=== PATIENT | male | born 1935 | race Caucasian/White ===

== ENCOUNTER 2018-05-20 17:23 | Emergency (ER) | payer MEDICARE ==
--- NOTE | 2018-05-20 18:34 | EDM.PDOC ---
ED HPI GENERAL MEDICAL PROBLEM - General Chief Complaint: General Stated Complaint: MEDICAL Time Seen by Provider: 05/20/18 18:31 Source of Information: Reports: Police, RN Notes Reviewed History Limitations: Reports: Physical Impairment - History of Present Illness INITIAL COMMENTS - FREE TEXT/NARRATIVE: 82-year-old gentleman presents to the emergency department via law enforcement he is from [facility] during winter months resides in [place] during the summer months. Initially presented to the [facility] in [place] stating was confused however before any evaluation was done he walked off and got into his car drove away. Law enforcement was called they did apprehend him in [place] EMS services were called he was then brought to the emergency department for further evaluation he is pleasant and cooperative but he is clearly having memory issues consistent with a dementia type process therefore it's difficult to obtain any review of systems or any pertinent history of present illness. We are able to contact his and [facility] she was able to confirm that he was fine when he left planning a trip [place] spoke with him today on the phone also seemed to be fine. He does have a history of urinary tract infections - Related Data Allergies Allergy/AdvReac Type Severity Reaction Status Date / Time No Known Allergies Allergy Verified 05/20/18 17:41 Home Meds: Home Meds Levothyroxine 75 mcg PO DAILY 05/20/18 [History] Lisinopril 5 mg PO DAILY 05/20/18 [History] Warfarin Sodium 1 mg PO DAILY 05/20/18 [History] atorvaSTATin [Lipitor] 20 mg PO BEDTIME 05/20/18 [History] metFORMIN HCl [Metformin HCl] 1,000 mg PO BID 05/20/18 [History] Past Medical History Genitourinary History: Reports: Neurogenic Bladder - Past Surgical History Male Surgical History: Reports: Suprapubic Catheter Placement Social & Family History - Tobacco Use Smoking Status *Q: Never Smoker - Recreational Drug Use Recreational Drug Use: No ED ROS GENERAL - Review of Systems Review Of Systems: Unable To Obtain ED EXAM, GENERAL - Physical Exam Exam: See Below Exam Limited By: Physical Impairment General Appearance: Alert, No Apparent Distress Throat/Mouth: Normal Inspection, Normal Lips, Normal Teeth, Normal Gums, Normal Oropharynx, Normal Voice, No Airway Compromise Head: Atraumatic, Normocephalic Neck: Normal Inspection, Supple, Non-Tender, Full Range of Motion Respiratory/Chest: No Respiratory Distress, Lungs Clear, Normal Breath Sounds, No Accessory Muscle Use Cardiovascular: Regular Rate, Rhythm, No Murmur GI/Abdominal: Soft, Non-Tender Course - Vital Signs Last Recorded V/S: Last Vital Signs Temp Pulse 67 05/20/18 17:35 Resp 13 05/20/18 17:35 BP 137/70 05/20/18 17:35 Pulse Ox 93 L 05/20/18 17:35 - Orders/Labs/Meds Orders: Active Orders 24 hr Category Date Time Status CULTURE URINE [RM] Urgent Lab 05/20/18 19:38 Received Labs: Laboratory Tests 05/20/18 05/20/18 05/20/18 Range/Units 17:32 17:32 18:36 WBC 9.3 (4.5-11.0) K/uL RBC 5.30 (4.30-5.90) M/uL Hgb 15.7 H (12.0-15.0) g/dL Hct 45.5 (40.0-54.0) % MCV 86 (80-98) fL MCH 30 (27-31) pg MCHC 35 (32-36) % Plt Count 193 (150-400) K/uL Neut % (Auto) 73 H (36-66) % Lymph % (Auto) 14 L (24-44) % Runnels % (Auto) 9 H (2-6) % Eos % (Auto) 3 (2-4) % Baso % (Auto) 1 (0-1) % PT (9.5-12.0) sec INR (0.80-1.20) Sodium 137 L (140-148) mmol/L Potassium 4.0 (3.6-5.2) mmol/L Chloride 101 (100-108) mmol/L Carbon Dioxide 26 (21-32) mmol/L Anion Gap 14.0 (5.0-14.0) mmol/L BUN 25 H (7-18) mg/dL Creatinine 1.3 (0.8-1.3) mg/dL Est Cr Clr Drug Dosing 46.66 mL/min Estimated GFR (MDRD) 53 L (>60) Glucose 280 H (74-106) mg/dL Calcium 9.8 (8.5-10.1) mg/dL Total Bilirubin 0.6 (0.2-1.0) mg/dL AST 15 (15-37) U/L ALT 39 (12-78) U/L Alkaline Phosphatase 106 (46-116) U/L Total Protein 7.4 (6.4-8.2) g/dL Albumin 3.8 (3.4-5.0) g/dL Globulin 3.6 H (2.3-3.5) g/dL Albumin/Globulin Ratio 1.1 L (1.2-2.2) Urine Color Yellow Urine Appearance Cloudy Urine pH 9.0 H (4.5-8.0) Ur Specific Pauline 1.000 L (1.008-1.030) Urine Protein 30 H (NEGATIVE) mg/dL Urine Glucose (UA) 100 H (NEGATIVE) mg/dL Urine Ketones Negative (NEGATIVE) mg/dL Urine Occult Blood Large (NEGATIVE) Urine Nitrite Positive H (NEGAITVE) Urine Bilirubin Negative (NEGATIVE) Urine Urobilinogen Normal (NORMAL) mg/dL Ur Leukocyte Esterase Large (NEGATIVE) Urine RBC 20-30 H (0-5) Urine WBC 20-30 H (0-5) Ur Epithelial Cells Not seen Amorphous Sediment Many Urine Bacteria Moderate Urine Mucus Not seen 05/20/18 Range/Units 19:14 WBC (4.5-11.0) K/uL RBC (4.30-5.90) M/uL Hgb (12.0-15.0) g/dL Hct (40.0-54.0) % MCV (80-98) fL MCH (27-31) pg MCHC (32-36) % Plt Count (150-400) K/uL Neut % (Auto) (36-66) % Lymph % (Auto) (24-44) % Runnels % (Auto) (2-6) % Eos % (Auto) (2-4) % Baso % (Auto) (0-1) % PT 19.4 H (9.5-12.0) sec INR 1.82 H (0.80-1.20) Sodium (140-148) mmol/L Potassium (3.6-5.2) mmol/L Chloride (100-108) mmol/L Carbon Dioxide (21-32) mmol/L Anion Gap (5.0-14.0) mmol/L BUN (7-18) mg/dL Creatinine (0.8-1.3) mg/dL Est Cr Clr Drug Dosing mL/min Estimated GFR (MDRD) (>60) Glucose (74-106) mg/dL Calcium (8.5-10.1) mg/dL Total Bilirubin (0.2-1.0) mg/dL AST (15-37) U/L ALT (12-78) U/L Alkaline Phosphatase (46-116) U/L Total Protein (6.4-8.2) g/dL Albumin (3.4-5.0) g/dL Globulin (2.3-3.5) g/dL Albumin/Globulin Ratio (1.2-2.2) Urine Color Urine Appearance Urine pH (4.5-8.0) Ur Specific Pauline (1.008-1.030) Urine Protein (NEGATIVE) mg/dL Urine Glucose (UA) (NEGATIVE) mg/dL Urine Ketones (NEGATIVE) mg/dL Urine Occult Blood (NEGATIVE) Urine Nitrite (NEGAITVE) Urine Bilirubin (NEGATIVE) Urine Urobilinogen (NORMAL) mg/dL Ur Leukocyte Esterase (NEGATIVE) Urine RBC (0-5) Urine WBC (0-5) Ur Epithelial Cells Amorphous Sediment Urine Bacteria Urine Mucus Meds: Medications Discontinued Medications Generic Name Dose Route Start Last Admin Trade Name Freq PRN Reason Stop Dose Admin Ceftriaxone Sodium 1 gm/ 0 gm 05/20/18 19:11 05/20/18 19:23 Lidocaine HCl 2.1 ml IM 05/20/18 19:12 1 inj ONETIME ONE Administration Departure - Departure Time of Disposition: 19:55 Disposition: Home, Self-Care 01 Condition: Fair Clinical Impression: Urinary tract infection Qualifiers: Urinary tract infection type: catheter-associated UTI Indwelling urinary catheter type: indwelling urethral catheter Encounter type: initial encounter Qualified Code(s): T83.511A - Infection and inflammatory reaction due to indwelling urethral catheter, initial encounter; N39.0 - Urinary tract infection , site not specified - Discharge Information Referrals: PCP,None [Primary Care Provider] - Forms: ED Department Discharge Additional Instructions: Please take full course of antibiotics, please follow-up with your primary care provider upon return home, call return to the emergency department worsening of symptoms - My Orders Last 24 Hours: My Active Orders 05/20/18 19:38 CULTURE URINE [RM] Urgent - Assessment/Plan Last 24 Hours: My Active Orders 05/20/18 19:38 CULTURE URINE [RM] Urgent Plan: Assessment Acuity = acute Site and laterality = urinary tract infection complicated by indwelling catheter chronic Etiology = probable bacterial cause Manifestations = confusion Location of injury = Home Lab values = CBC unremarkable INR is subtherapeutic 1.8 to glucose is 280 consistent with hyperglycemia urinalysis reveals positive nitrates 20-30 rbc's consists with hematuria 20-30 WBCs consistent with pyuria Plan Friend of his has arrived and will provide him a ride home states he will take care of him for this evening and help him get his vehicle back I am prescribing levofloxacin 500 mg by mouth daily 10 days he did receive 1 g Rocephin IM while in the emergency department have asked him to follow-up with his primary care upon return home to [facility] This note was dictated using [email or web address] voice recognition software please call with any questions on syntax or grammar.
[2018-05-20] MEDS ORDERED: cefTRIAXone 1 GM, Lidocaine 1% 2.1 ML IM ONE ×2 (19:11)
== END 2018-05-20 20:04 | disposition home or self-care (01) ==
LOC: JP.ED 17:23
DX: T83.511A Infection and inflammatory reaction due to indwelling urethral catheter, initial encounter (principal); Z79.899 Other long term (current) drug therapy
CPT/HCPCS: 36415; 80053; 81001; 85025; 85610; 87086; 87088; 87186; 96372; 99285; J0696; J2001; 99283